=== PATIENT | female | born 1950 | race Caucasian/White ===

== ENCOUNTER → 2016-09-03 | Outpatient (CLI) | payer OTHER ==
[~2016-09-03] VITALS: Ht 157.5 cm; Wt 55.5 kg
[~2016-09-03] MED LIST: BENADRYL25 MG PO; CALCIUM ADULT1 EACH PO; CHILD ASPIRIN81 M1 PO; ERGOCALCIF50000 UNIT PO; PREVACID15 MG PO; PREVACID30 MG PO; SENNA8.6 M1 PO
[2016-09-03 10:19] VITALS: BP 128/78
== END | disposition home or self-care (01) ==
LOC: IVINF 08-25 17:00
DX: M81.0 Age-related osteoporosis without current pathological fracture (principal); Z88.2 Allergy status to sulfonamides; Z88.6 Allergy status to analgesic agent
CPT/HCPCS: 96365; J3489